=== PATIENT | male | born 2000 | race Caucasian/White ===

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

== ENCOUNTER 2020-01-01 08:38 | Emergency (ER) | payer BC, OTHER ==
[~2020-01-01] VITALS: Ht 185.4 cm; Wt 131.6 kg
[~2020-01-01 08:38] MED LIST changes: -FLUO20CA19 PO; +FLUO20CA22 PO; +MELA3TAB30 PO; -MELA3TAB41 PO
[2020-01-01] MEDS ORDERED: ADDE20CA3 (08:49)
[2020-01-01] MEDS ORDERED: REXU1TAB5 (08:49)
[2020-01-01] MEDS ORDERED: REXU1TAB6 (08:49)
[2020-01-01] MEDS ORDERED: TRAZ-252 (08:49)
[2020-01-01] MEDS ORDERED: ALBUTEROL 90 MCG/ACT 8GM HFA INHALER INH ONE (09:30)
--- NOTE | 2020-01-01 09:39 | REPVR ---
PROCEDURE INFORMATION: Exam: XR Chest, 2 Views Exam date and time: 01/01/2020 9:28 AM Age: 19 years old Clinical indication: Shortness of breath; Additional info: SOB, chest pain TECHNIQUE: Imaging protocol: XR of the chest Views: 2 views. COMPARISON: No relevant prior studies available. FINDINGS: Lungs: Unremarkable. No consolidation. Pleural space: Unremarkable. No pleural effusion. No pneumothorax. Heart/Mediastinum: Unremarkable. No cardiomegaly. Bones/joints: Unremarkable. IMPRESSION: No acute abnormalities are identified. Electronically signed by: Star Narayan On 01/01/2020 09:38:57 AM
[2020-01-01] MEDS ORDERED: VENTAER INH (10:29)
[2020-01-01 10:42] VITALS: BP 124/77
--- NOTE | 2020-01-14 15:06 | ECGEPIP ---
SINUS RHYTHM NORMAL ECG SEE SCANNED DOWNTIME REPORT MTDD
== END 2020-01-01 10:47 | disposition home or self-care (01) ==
LOC: M ED 08:38
DX: J98.01 Acute bronchospasm (principal); F41.9 Anxiety disorder, unspecified

== ENCOUNTER → 2020-10-13 | Outpatient (REF) | payer OTHER ==
[~2020-10-13] MED LIST changes: +ADDE20CA3; +BUPR150T12; -BUPR150T3; +REXU1TAB5; +REXU1TAB6; +TRAZ-252; +VENTAER INH
[2020-10-13 10:34] LABS: BASO % 0.7 % (0.0-1.0); EOS # 0.3 10^3/uL (0.0-0.5); EOS % 5.4 % (0.0-3.0); HEMATOCRIT 50.1 % (42.0-52.0); LYMPH # 2.4 10^3/uL (1.5-5.0); MEAN CORPUSCULAR HEMOGLOBIN 25.8 pg (27.0-33.0); MEAN CORPUSCULAR HGB CONC 31.9 g/dl (32.0-36.5); MEAN CORPUSCULAR VOLUME 80.7 fl (80.0-96.0); MONO # 0.6 10^3/uL (0.0-0.8); NEUTROPHILS # 2.3 10^3/uL (1.5-8.5); NEUTROPHILS % 41.2 % (36.0-66.0); PLATELET COUNT, AUTOMATED 252 10^3/uL (150-450); RED BLOOD COUNT 6.21 10^6/uL (4.30-6.10); WHITE BLOOD COUNT 5.6 10^3/uL (4.0-10.0)
[2020-10-13 11:16] LABS: ALBUMIN 4.3 GM/DL (3.2-5.2); ALT/SGPT 187 U/L (12-78); BILIRUBIN,TOTAL 0.5 MG/DL (0.2-1.0); BLOOD UREA NITROGEN 9 MG/DL (7-18); CALCIUM LEVEL 9.2 MG/DL (8.5-10.1); CARBON DIOXIDE LEVEL 27 MEQ/L (21-32); CHLORIDE LEVEL 106 MEQ/L (98-107); CHOLESTEROL LEVEL 152 MG/DL (<200); CHOLESTEROL RISK RATIO 5.241 (<5); CREATININE FOR GFR 0.88 MG/DL (0.70-1.30); FREE T4 1.01 NG/DL (0.78-1.33); GLUCOSE, FASTING 83 MG/DL (70-100); HDL CHOLESTEROL 29 MG/DL (>40); LDL CHOLESTEROL 86 MG/DL (<100); NON-HDL-C 123 MG/DL; POTASSIUM SERUM 4.5 MEQ/L (3.5-5.1); SODIUM LEVEL 137 MEQ/L (136-145); TOTAL PROTEIN 7.6 GM/DL (6.4-8.2); TRIGLYCERIDES LEVEL 183 MG/DL (<150)
[2020-10-13 11:33] LABS: HEMOGLOBIN A1c 5.5 %
== END ==
LOC: M PLALAB 08:57
PROVIDERS: ATTEND Physician Assistant
DX: E66.01 Morbid (severe) obesity due to excess calories (principal); G47.33 Obstructive sleep apnea (adult) (pediatric); F20.89 Other schizophrenia; Z13.220 Encounter for screening for lipoid disorders; R00.0 Tachycardia, unspecified; I10 Essential (primary) hypertension; L60.0 Ingrowing nail

== ENCOUNTER → 2020-11-22 | Outpatient (CLI) | payer BC, OTHER ==
--- NOTE | 2020-11-22 09:33 | REP ---
INDICATION: ELEVATED LFT'S-HAS ECHO AFTER. COMPARISON: None. TECHNIQUE: Standard right upper quadrant sonography techniques utilized. FINDINGS: Exam is limited by body habitus considerations. The liver is diffusely and significantly hyperechoic consistent with fatty infiltration is difficult to penetrate the liver. That said, no of visible of dominant mass, a cyst, intrahepatic biliary dilatation nor adjacent ascites identified. The gallbladder shows no stone, sludge, pericholecystic fluid, wall thickening or mass. Limited visualization of the common bile duct shows at segment seen to be 5 mm and without a filling defect. No visible intrahepatic or extrahepatic biliary dilatation. Pancreas is completely obscured by gas shadowing. In the right kidney is 13 x 5.7 by 5.5 cm without hydronephrosis or mass. IMPRESSION: Diffuse fatty infiltration of the liver without mass, biliary dilatation, cyst or adjacent ascites. Gallbladder, common bile duct and right kidney unremarkable. Pancreas completely obscured by gas shadowing. Exam limited by body habitus considerations and diffuse intense fatty infiltration of the liver. <Electronically signed by Leland Sosa > 11/22/20 [id number]
== END ==
LOC: M RAD 08:11
PROVIDERS: ATTEND Physician Assistant
DX: R74.8 Abnormal levels of other serum enzymes (principal); K76.0 Fatty (change of) liver, not elsewhere classified

== ENCOUNTER 2021-01-06 14:09 | Emergency (ER) | payer BC, OTHER ==
[~2021-01-06] VITALS: Ht 185.4 cm; Wt 155.6 kg
[2021-01-06 14:10] VITALS: BP 130/86
[2021-01-06] MEDS ORDERED: BENZ-18 (14:28)
[2021-01-06] MEDS ORDERED: HYDR-3490 (14:28)
== END 2021-01-06 18:08 | disposition left against medical advice (07) ==
LOC: M ED 14:09
DX: Z53.21 Procedure and treatment not carried out due to patient leaving prior to being seen by health care provider (principal)

== ENCOUNTER → 2021-01-26 | Outpatient (CLI) | payer BC, OTHER ==
[~2021-01-26] MED LIST changes: +BENZ-18; +HYDR-3490
== END ==
LOC: M LABSMTC 09:41
PROVIDERS: ATTEND Pediatrics
DX: Z20.822 Contact with and (suspected) exposure to COVID-19 (principal)
CPT/HCPCS: C9803; U0003

== ENCOUNTER → 2021-07-25 | Outpatient (CLI) | payer BC, OTHER ==
[~2021-07-25] MED LIST changes: -LATU80TA PO; +LATU80TA2 PO
[2021-07-25 16:01] LABS: CORTISOL PM 10.8 UG/DL (3.1-16.7); THYROID STIMULATING HORMONE 2.26 uIU/ML (0.358-3.740)
== END ==
LOC: M PLALAB 13:32
PROVIDERS: ATTEND Internal Medicine Endocrinology, Diabetes & Metabolism
DX: E16.1 Other hypoglycemia (principal)

== ENCOUNTER 2021-08-15 12:25 | Emergency (ER) | payer BC, OTHER ==
[~2021-08-15] VITALS: Ht 182.9 cm; Wt 132.6 kg
[2021-08-15] MEDS ORDERED: REXU1TAB5 PO (12:33)
[2021-08-15] MEDS ORDERED: PROP60CA PO (12:33)
[2021-08-15] MEDS ORDERED: PROZ10CA7 PO (12:33)
[2021-08-15 16:07] LABS: BASO % 0.4 % (0.0-1.0); EOS # 0.2 10^3/uL (0.0-0.5); EOS % 2.5 % (0.0-3.0); HEMATOCRIT 45.6 % (42.0-52.0); HEMOGLOBIN 14.8 g/dl (13.5-17.5); LYMPH # 2.4 10^3/uL (1.5-5.0); LYMPH % 25.4 % (24.0-44.0); MEAN CORPUSCULAR HEMOGLOBIN 25.8 pg (27.0-33.0); MEAN CORPUSCULAR HGB CONC 32.5 g/dl (32.0-36.5); MEAN CORPUSCULAR VOLUME 79.6 fl (80.0-96.0); MONO # 0.7 10^3/uL (0.0-0.8); MONO % 7.1 % (2.0-8.0); NEUTROPHILS # 6.1 10^3/uL (1.5-8.5); NEUTROPHILS % 64.1 % (36.0-66.0); PLATELET COUNT, AUTOMATED 317 10^3/uL (150-450); RED BLOOD COUNT 5.73 10^6/uL (4.30-6.10); WHITE BLOOD COUNT 9.5 10^3/uL (4.0-10.0)
[2021-08-15 16:40] VITALS: BP 142/79
== END 2021-08-15 16:41 | disposition home or self-care (01) ==
LOC: M ED 12:25
DX: R07.89 Other chest pain (principal); F90.9 Attention-deficit hyperactivity disorder, unspecified type; K76.0 Fatty (change of) liver, not elsewhere classified; I51.7 Cardiomegaly; Z82.49 Family history of ischemic heart disease and other diseases of the circulatory system; Z91.040 Latex allergy status; Z88.8 Allergy status to other drugs, medicaments and biological substances

== ENCOUNTER → 2021-08-25 | Outpatient (CLI) | payer BC, OTHER ==
[~2021-08-25] MED LIST changes: +PROP60CA PO; +PROZ10CA7 PO; +REXU1TAB5 PO
== END ==
LOC: M SLEEP 20:00
PROVIDERS: ATTEND Physician Assistant
DX: G47.33 Obstructive sleep apnea (adult) (pediatric) (principal)

== ENCOUNTER 2021-12-03 01:19 | Emergency (ER) | payer BC, OTHER ==
[~2021-12-03] VITALS: Ht 185.4 cm; Wt 124.5 kg
[2021-12-03 01:29] VITALS: BP 130/86
== END 2021-12-03 05:29 | disposition left against medical advice (07) ==
LOC: M ED 01:19 → EDBD 01:19 → M ED 05:29
DX: Z53.21 Procedure and treatment not carried out due to patient leaving prior to being seen by health care provider (principal)

== ENCOUNTER → 2022-01-06 | Outpatient (REF) | payer OTHER | LOC: M SFHCADAM 08:17 | PROVIDERS: ATTEND Physician Assistant | DX: L65.9 Nonscarring hair loss, unspecified (principal); Z53.9 Procedure and treatment not carried out, unspecified reason ==

== ENCOUNTER → 2022-01-09 | Outpatient (CLI) | payer BC, OTHER ==
[2022-01-09 10:33] LABS: BASO % 0.5 % (0.0-1.0); EOS # 0.2 10^3/uL (0.0-0.5); EOS % 2.7 % (0.0-3.0); HEMATOCRIT 41.3 % (42.0-52.0); HEMOGLOBIN 13.1 g/dl (13.5-17.5); LYMPH # 1.8 10^3/uL (1.5-5.0); LYMPH % 32.7 % (24.0-44.0); MEAN CORPUSCULAR HEMOGLOBIN 25.6 pg (27.0-33.0); MEAN CORPUSCULAR HGB CONC 31.7 g/dl (32.0-36.5); MEAN CORPUSCULAR VOLUME 80.8 fl (80.0-96.0); MONO # 0.5 10^3/uL (0.0-0.8); MONO % 8.6 % (2.0-8.0); NEUTROPHILS # 3.1 10^3/uL (1.5-8.5); NEUTROPHILS % 55.1 % (36.0-66.0); PLATELET COUNT, AUTOMATED 232 10^3/uL (150-450); RED BLOOD COUNT 5.11 10^6/uL (4.30-6.10); WHITE BLOOD COUNT 5.6 10^3/uL (4.0-10.0)
[2022-01-09 11:49] LABS: ALBUMIN 4.2 GM/DL (3.2-5.2); ALT/SGPT 32 U/L (12-78); BILIRUBIN,TOTAL 0.6 MG/DL (0.2-1.0); BLOOD UREA NITROGEN 13 MG/DL (7-18); CALCIUM LEVEL 9.2 MG/DL (8.5-10.1); CARBON DIOXIDE LEVEL 27 MEQ/L (21-32); CHLORIDE LEVEL 107 MEQ/L (98-107); CREATININE FOR GFR 0.87 MG/DL (0.70-1.30); FERRITIN 74 NG/ML (26-388); FREE T4 0.87 NG/DL (0.76-1.46); GLOMERULAR FILTRATION RATE > 60.0 (>60); GLUCOSE, FASTING 81 MG/DL (70-100); IRON (FE) 74 UG/DL (65-175); POTASSIUM SERUM 4.3 MEQ/L (3.5-5.1); SODIUM LEVEL 138 MEQ/L (136-145); TOTAL IRON BINDING CAPACITY 412 UG/DL (250-450)
[2022-01-09 12:30] LABS: TOTAL 25(OH) VITAMIN D 29.7 NG/ML (30.0-100.0)
[2022-01-09 12:31] LABS: VITAMIN B12 LEVEL 405 PG/ML (247-911)
== END ==
LOC: M PLALAB 08:37
PROVIDERS: ATTEND Physician Assistant
DX: L65.9 Nonscarring hair loss, unspecified (principal)

== ENCOUNTER → 2022-07-17 | Outpatient (CLI) | payer BC, OTHER ==
[2022-07-17 19:43] LABS: HEMOGLOBIN A1c 5.1 % (4.0-6.0)
== END ==
LOC: M LAB 17:32
PROVIDERS: ATTEND Surgery
DX: Z86.39 Personal history of other endocrine, nutritional and metabolic disease (principal)

== ENCOUNTER → 2022-09-01 | Outpatient (REF) | payer OTHER ==
[2022-09-01 12:37] LABS: HEMOGLOBIN 14.6 g/dl (13.5-17.5); MEAN CORPUSCULAR HEMOGLOBIN 25.4 pg (27.0-33.0); MEAN CORPUSCULAR HGB CONC 31.7 g/dl (32.0-36.5); MEAN CORPUSCULAR VOLUME 80.1 fl (80.0-96.0); PLATELET COUNT, AUTOMATED 268 10^3/uL (150-450); RED BLOOD COUNT 5.74 10^6/uL (4.30-6.10); WHITE BLOOD COUNT 7.2 10^3/uL (4.0-10.0)
[2022-09-01 12:50] LABS: HEMOGLOBIN A1c 5.1 % (4.0-6.0)
[2022-09-01 13:06] LABS: ALBUMIN 3.9 G/DL (3.2-5.2); ALKALINE PHOSPHATASE 76 U/L (46-116); ALT/SGPT 31 U/L (7.0-40); AST/SGOT 20 U/L (<34); BILIRUBIN,TOTAL 0.5 MG/DL (0.3-1.2); BLOOD UREA NITROGEN 14 MG/DL (9-23); CARBON DIOXIDE LEVEL 29 MMOL/L (20-31); CHLORIDE LEVEL 104 MMOL/L (98-107); CREATININE FOR GFR 0.89 MG/DL (0.70-1.30); GLOMERULAR FILTRATION RATE > 60.0 (>60); GLUCOSE, FASTING 76 MG/DL (60-100); POTASSIUM SERUM 4.1 MMOL/L (3.5-5.1); SODIUM LEVEL 140 MMOL/L (136-145); THYROID STIMULATING HORMONE 1.543 uIU/ML (0.55-4.78); TOTAL PROTEIN 6.8 G/DL (5.7-8.2)
[2022-09-01 13:07] LABS: FREE T4 0.95 NG/DL (0.89-1.76)
== END ==
LOC: M SFHCADAM 11:36
PROVIDERS: ATTEND Physician Assistant
DX: Z01.812 Encounter for preprocedural laboratory examination (principal)

== ENCOUNTER → 2022-10-12 | Outpatient (CLI) | payer BC, OTHER | LOC: M RAD 12:01 | PROVIDERS: ATTEND Physician Assistant Surgical | DX: M79.662 Pain in left lower leg (principal); R22.42 Localized swelling, mass and lump, left lower limb; Z98.84 Bariatric surgery status ==

== ENCOUNTER 2022-10-13 17:30 | Emergency (ER) | payer BC, OTHER ==
[~2022-10-13] VITALS: Ht 185.4 cm; Wt 125.5 kg
[2022-10-13] MEDS ORDERED: NS 1,000 ML IV ONE ×2 (17:45→20:35)
[2022-10-13 18:20] LABS: BASO % 0.4 % (0.0-1.0); EOS # 0.4 10^3/uL (0.0-0.5); EOS % 3.8 % (0.0-3.0); HEMOGLOBIN 12.9 g/dl (13.5-17.5); MEAN CORPUSCULAR HEMOGLOBIN 25.5 pg (27.0-33.0); MEAN CORPUSCULAR HGB CONC 32.3 g/dl (32.0-36.5); MEAN CORPUSCULAR VOLUME 79.1 fl (80.0-96.0); MONO # 0.7 10^3/uL (0.0-0.8); MONO % 8.1 % (2.0-8.0); NEUTROPHILS # 5.8 10^3/uL (1.5-8.5); NEUTROPHILS % 64.2 % (36.0-66.0); PLATELET COUNT, AUTOMATED 304 10^3/uL (150-450); RED BLOOD COUNT 5.06 10^6/uL (4.30-6.10); WHITE BLOOD COUNT 9.1 10^3/uL (4.0-10.0)
[2022-10-13 18:44] LABS: ALBUMIN 4.3 G/DL (3.2-5.2); ALKALINE PHOSPHATASE 64 U/L (46-116); ALT/SGPT 21 U/L (7.0-40); AST/SGOT 14 U/L (<34); BILIRUBIN,DIRECT 0.2 MG/DL (<0.4); BILIRUBIN,TOTAL 0.7 MG/DL (0.3-1.2); BLOOD UREA NITROGEN 14 MG/DL (9-23); CALCIUM LEVEL 9.4 MG/DL (8.5-10.1); CARBON DIOXIDE LEVEL 21 MMOL/L (20-31); CHLORIDE LEVEL 99 MMOL/L (98-107); CK-MB VALUE MASS < 1.0 NG/ML (<3.6); CPK CREATINE PHOSPHOKINASE 108 U/L (46-171); CREATININE FOR GFR 0.99 MG/DL (0.70-1.30); GLOMERULAR FILTRATION RATE > 60.0 (>60); GLUCOSE, FASTING 80 MG/DL (60-100); MB/CK RELATIVE INDEX 0.92 (< OR =4); POTASSIUM SERUM 3.4 MMOL/L (3.5-5.1); SODIUM LEVEL 136 MMOL/L (136-145); TOTAL PROTEIN 7.1 G/DL (5.7-8.2)
[2022-10-13 18:45] LABS: THYROID STIMULATING HORMONE 1.896 uIU/ML (0.55-4.78); THYROXINE (T4) 10.6 UG/DL (4.5-10.9)
[2022-10-13 18:52] LABS: RSV AMPLIFICATION NEGATIVE (NEGATIVE)
[2022-10-13] MEDS ORDERED: ISOVUE-370 76% 100ML VIAL As Ordered ONE (18:52)
[2022-10-13 20:05] LABS: CK-MB VALUE MASS < 1.0 NG/ML (<3.6)
[2022-10-13 20:07] LABS: CPK CREATINE PHOSPHOKINASE 89 U/L (46-171); MB/CK RELATIVE INDEX 1.12 (< OR =4)
[2022-10-13] MEDS ORDERED: PIPERACILLIN/TAZOBACTAM SOD 4.5 GM in D5W MINI-BAG PLUS 50 ML IV ONE (20:25)
[2022-10-13 21:06] VITALS: TEMP 98
[2022-10-13 21:30] VITALS: O2SAT 98
[2022-10-13 21:38] VITALS: BP 128/75
== END 2022-10-13 21:46 | disposition short-term general hospital (02) ==
LOC: M ED 17:30
DX: K66.8 Other specified disorders of peritoneum (principal); E11.9 Type 2 diabetes mellitus without complications; I10 Essential (primary) hypertension; Z98.84 Bariatric surgery status; F41.9 Anxiety disorder, unspecified; Z79.899 Other long term (current) drug therapy; Z88.8 Allergy status to other drugs, medicaments and biological substances
CPT/HCPCS: 71045; 71275; 74177; 80047; 80048; 80076; 82550; 82553; 83605; 83880; 84436; 84443; 84484; 85025; 87040; 87631; 93005; 93041; 94760; 99285; Q9967

== ENCOUNTER 2022-10-14 20:26 | Emergency (ER) | payer BC, OTHER ==
[2022-10-14 20:46] VITALS: TEMP 97.4; O2SAT 97
[2022-10-14 21:00] VITALS: BP 186/108
[2022-10-14 21:28] LABS: BASO % 0.3 % (0.0-1.0); EOS # 0.3 10^3/uL (0.0-0.5); HEMATOCRIT 40.4 % (42.0-52.0); HEMOGLOBIN 12.8 g/dl (13.5-17.5); LYMPH # 2.1 10^3/uL (1.5-5.0); LYMPH % 24.8 % (24.0-44.0); MEAN CORPUSCULAR HEMOGLOBIN 25.2 pg (27.0-33.0); MEAN CORPUSCULAR HGB CONC 31.7 g/dl (32.0-36.5); MEAN CORPUSCULAR VOLUME 79.7 fl (80.0-96.0); MONO # 0.6 10^3/uL (0.0-0.8); MONO % 7.1 % (2.0-8.0); NEUTROPHILS # 5.5 10^3/uL (1.5-8.5); NEUTROPHILS % 63.9 % (36.0-66.0); PLATELET COUNT, AUTOMATED 300 10^3/uL (150-450); RED BLOOD COUNT 5.07 10^6/uL (4.30-6.10); WHITE BLOOD COUNT 8.6 10^3/uL (4.0-10.0)
[2022-10-14 21:39] LABS: INR 1.04; PROTHROMBIN TIME 13.8 SECONDS (12.5-14.5)
[2022-10-14 21:55] LABS: LIPASE 53 U/L (12-53)
[2022-10-14 21:56] LABS: CK-MB VALUE MASS < 1.0 NG/ML (<3.6)
[2022-10-14 21:58] LABS: CPK CREATINE PHOSPHOKINASE 85 U/L (46-171); MB/CK RELATIVE INDEX 1.17 (< OR =4)
[2022-10-14 22:01] LABS: ALBUMIN 4.3 G/DL (3.2-5.2); ALKALINE PHOSPHATASE 60 U/L (46-116); ALT/SGPT 19 U/L (7.0-40); AST/SGOT 15 U/L (<34); BILIRUBIN,DIRECT 0.2 MG/DL (<0.4); BILIRUBIN,TOTAL 0.6 MG/DL (0.3-1.2); BLOOD UREA NITROGEN 5 MG/DL (9-23); CALCIUM LEVEL 8.6 MG/DL (8.5-10.1); CARBON DIOXIDE LEVEL 22 MMOL/L (20-31); CHLORIDE LEVEL 103 MMOL/L (98-107); CREATININE FOR GFR 0.88 MG/DL (0.70-1.30); GLOMERULAR FILTRATION RATE > 60.0 (>60); GLUCOSE, FASTING 87 MG/DL (60-100); POTASSIUM SERUM 4.1 MMOL/L (3.5-5.1); SODIUM LEVEL 138 MMOL/L (136-145); TOTAL PROTEIN 6.9 G/DL (5.7-8.2)
== END 2022-10-14 22:22 | disposition left against medical advice (07) ==
LOC: M ED 20:26 → EDBD 20:26 → M ED 22:22
DX: Z53.21 Procedure and treatment not carried out due to patient leaving prior to being seen by health care provider (principal)

== ENCOUNTER → 2022-10-27 | Outpatient (CLI) | payer BC, OTHER | LOC: M RAD 15:16 | PROVIDERS: ATTEND Physician Assistant Surgical | DX: M79.661 Pain in right lower leg (principal); Z98.84 Bariatric surgery status ==

== ENCOUNTER → 2022-11-01 | Outpatient (CLI) | payer BC, OTHER ==
[2022-11-01 15:43] LABS: BASO % 0.4 % (0.0-1.0); EOS # 0.3 10^3/uL (0.0-0.5); EOS % 5.9 % (0.0-3.0); HEMATOCRIT 41.5 % (42.0-52.0); HEMOGLOBIN 13.1 g/dl (13.5-17.5); LYMPH % 38.7 % (24.0-44.0); MEAN CORPUSCULAR HEMOGLOBIN 25.5 pg (27.0-33.0); MEAN CORPUSCULAR HGB CONC 31.6 g/dl (32.0-36.5); MEAN CORPUSCULAR VOLUME 80.9 fl (80.0-96.0); MONO # 0.5 10^3/uL (0.0-0.8); MONO % 9.6 % (2.0-8.0); NEUTROPHILS # 2.3 10^3/uL (1.5-8.5); NEUTROPHILS % 45.2 % (36.0-66.0); PLATELET COUNT, AUTOMATED 220 10^3/uL (150-450); RED BLOOD COUNT 5.13 10^6/uL (4.30-6.10); WHITE BLOOD COUNT 5.1 10^3/uL (4.0-10.0)
[2022-11-01 15:51] LABS: ALBUMIN 4.5 G/DL (3.2-5.2); ALKALINE PHOSPHATASE 65 U/L (46-116); ALT/SGPT 22 U/L (7.0-40); AST/SGOT 10 U/L (<34); BILIRUBIN,TOTAL 0.6 MG/DL (0.3-1.2); BLOOD UREA NITROGEN 6 MG/DL (9-23); CALCIUM LEVEL 9.9 MG/DL (8.5-10.1); CARBON DIOXIDE LEVEL 26 MMOL/L (20-31); CHLORIDE LEVEL 105 MMOL/L (98-107); CREATININE FOR GFR 0.87 MG/DL (0.70-1.30); GLOMERULAR FILTRATION RATE > 60.0 (>60); GLUCOSE, FASTING 75 MG/DL (60-100); IRON (FE) 72 UG/DL (65-175); PERCENT SATURATION 23.9 % (19.7-50.0); PHOSPHORUS LEVEL 3.4 MG/DL (2.5-4.9); POTASSIUM SERUM 4.4 MMOL/L (3.5-5.1); SODIUM LEVEL 139 MMOL/L (136-145); TOTAL IRON BINDING CAPACITY 301 UG/DL (250-425); TOTAL PROTEIN 6.7 G/DL (5.7-8.2)
[2022-11-01 15:52] LABS: TOTAL 25(OH) VITAMIN D 32.6 NG/ML (20.0-100.0)
[2022-11-01 15:53] LABS: FERRITIN 137.5 NG/ML (10.5-307.3); VITAMIN B12 LEVEL 915 PG/ML (211-911)
[2022-11-01 15:58] LABS: HEMATOCRIT 41.2 % (42.0-52.0)
[2022-11-01 17:03] LABS: HEMOGLOBIN A1c 4.7 % (4.0-6.0)
== END ==
LOC: M PLALAB 13:22
PROVIDERS: ATTEND Surgery
DX: K91.2 Postsurgical malabsorption, not elsewhere classified (principal); Z98.84 Bariatric surgery status; E55.9 Vitamin D deficiency, unspecified; Z86.39 Personal history of other endocrine, nutritional and metabolic disease

== ENCOUNTER 2023-04-18 19:15 | Emergency (ER) | payer BC, OTHER ==
[~2023-04-18] VITALS: Ht 185.4 cm; Wt 121.5 kg
[2023-04-18 19:15] VITALS: BP 173/87; TEMP 97.9; O2SAT 100
[~2023-04-18 19:15] MED LIST changes: +OMEP40CA5; +SERT50TA29
[2023-04-18 19:50] LABS: BASO % 0.4 % (0.0-1.0); EOS # 0.1 10^3/uL (0.0-0.5); EOS % 2.5 % (0.0-3.0); HEMATOCRIT 43.1 % (42.0-52.0); HEMOGLOBIN 13.9 g/dl (13.5-17.5); LYMPH # 1.7 10^3/uL (1.5-5.0); LYMPH % 33.4 % (24.0-44.0); MEAN CORPUSCULAR HEMOGLOBIN 26.4 pg (27.0-33.0); MEAN CORPUSCULAR HGB CONC 32.3 g/dl (32.0-36.5); MEAN CORPUSCULAR VOLUME 81.8 fl (80.0-96.0); MONO # 0.7 10^3/uL (0.0-0.8); MONO % 13.9 % (2.0-8.0); NEUTROPHILS # 2.5 10^3/uL (1.5-8.5); NEUTROPHILS % 49.6 % (36.0-66.0); PLATELET COUNT, AUTOMATED 227 10^3/uL (150-450); RED BLOOD COUNT 5.27 10^6/uL (4.30-6.10); WHITE BLOOD COUNT 5.1 10^3/uL (4.0-10.0)
[2023-04-18 20:20] LABS: ALBUMIN 4.2 G/DL (3.2-5.2); ALKALINE PHOSPHATASE 75 U/L (46-116); ALT/SGPT 31 U/L (7.0-40); AST/SGOT 23 U/L (<34); BILIRUBIN,DIRECT < 0.1 MG/DL (<0.4); BILIRUBIN,TOTAL 0.3 MG/DL (0.3-1.2); BLOOD UREA NITROGEN 15 MG/DL (9-23); CALCIUM LEVEL 9.3 MG/DL (8.5-10.1); CARBON DIOXIDE LEVEL 25 MMOL/L (20-31); CHLORIDE LEVEL 110 MMOL/L (98-107); CREATININE FOR GFR 0.89 MG/DL (0.70-1.30); GLOMERULAR FILTRATION RATE > 60.0 (>60); GLUCOSE, FASTING 96 MG/DL (60-100); POTASSIUM SERUM 4.4 MMOL/L (3.5-5.1); SODIUM LEVEL 142 MMOL/L (136-145); TOTAL PROTEIN 7.1 G/DL (5.7-8.2)
[2023-04-18 20:20] LABS: RSV AMPLIFICATION NEGATIVE (NEGATIVE)
== END 2023-04-18 21:20 | disposition left against medical advice (07) ==
LOC: M ED 19:15
DX: Z53.21 Procedure and treatment not carried out due to patient leaving prior to being seen by health care provider (principal)

== ENCOUNTER → 2023-05-18 | Outpatient (REF) | payer BC, OTHER ==
[2023-05-19 15:11] LABS: TESTOSTERONE FREE (DIRECT) 12.2 pg/mL (9.3-26.5)
== END ==
LOC: M SFHCADAM 07:50
PROVIDERS: ATTEND Physician Assistant
DX: R68.82 Decreased libido (principal); E66.01 Morbid (severe) obesity due to excess calories

== ENCOUNTER → 2023-05-18 | Outpatient (REF) | payer BC, OTHER ==
[2023-05-18 21:10] LABS: HEMATOCRIT 42.4 % (42.0-52.0); HEMOGLOBIN 13.6 g/dl (13.5-17.5); MEAN CORPUSCULAR HEMOGLOBIN 26.8 pg (27.0-33.0); MEAN CORPUSCULAR HGB CONC 32.1 g/dl (32.0-36.5); MEAN CORPUSCULAR VOLUME 83.5 fl (80.0-96.0); PLATELET COUNT, AUTOMATED 237 10^3/uL (150-450); RED BLOOD COUNT 5.08 10^6/uL (4.30-6.10); WHITE BLOOD COUNT 6.3 10^3/uL (4.0-10.0)
[2023-05-18 21:16] LABS: IRON (FE) 42 UG/DL (65-175)
[2023-05-18 21:17] LABS: ALBUMIN 4.6 G/DL (3.2-5.2); ALKALINE PHOSPHATASE 77 U/L (46-116); ALT/SGPT 30 U/L (7.0-40); AST/SGOT 23 U/L (<34); BILIRUBIN,TOTAL 0.5 MG/DL (0.3-1.2); BLOOD UREA NITROGEN 17 MG/DL (9-23); CALCIUM LEVEL 8.9 MG/DL (8.5-10.1); CARBON DIOXIDE LEVEL 26 MMOL/L (20-31); CHLORIDE LEVEL 105 MMOL/L (98-107); CREATININE FOR GFR 0.94 MG/DL (0.70-1.30); GLOMERULAR FILTRATION RATE > 60.0 (>60); GLUCOSE, FASTING 69 MG/DL (60-100); MAGNESIUM LEVEL 2.2 MG/DL (1.8-2.4); PHOSPHORUS LEVEL 3.8 MG/DL (2.5-4.9); SODIUM LEVEL 139 MMOL/L (136-145); TOTAL IRON BINDING CAPACITY 351 UG/DL (250-425); TOTAL PROTEIN 7.1 G/DL (5.7-8.2)
[2023-05-18 21:18] LABS: FERRITIN 74.7 NG/ML (10.5-307.3); TOTAL 25(OH) VITAMIN D 43.5 NG/ML (20.0-100.0)
[2023-05-18 21:19] LABS: VITAMIN B12 LEVEL 607 PG/ML (211-911)
[2023-05-19 22:49] LABS: HEMATOCRIT 42.4 % (42.0-52.0)
== END ==
LOC: M LAB REF 20:51
PROVIDERS: ATTEND Physician Assistant Surgical
DX: Z98.84 Bariatric surgery status (principal)

== ENCOUNTER → 2023-05-29 | Outpatient (REF) | payer BC, OTHER | LOC: M LAB REF 16:12 | PROVIDERS: ATTEND Physician Assistant Medical | DX: R50.9 Fever, unspecified (principal) ==

== ENCOUNTER 2024-08-02 02:53 | Emergency (ER) | payer BC, OTHER ==
[~2024-08-02] VITALS: Ht 185.4 cm; Wt 83.4 kg
[~2024-08-02 02:53] MED LIST changes: +BUPR-597; -BUPR300T92; +FLUO-365 PO; -FLUO20CA22 PO; -ZIPR60CA11 PO; +ZIPR60CA21 PO
[2024-08-02 04:15] VITALS: BP 119/73
[2024-08-02 05:45] LABS: BASO % 0.2 % (0.0-1.0); EOS # 0.2 10^3/uL (0.0-0.5); EOS % 1.7 % (0.0-3.0); HEMATOCRIT 50.1 % (42.0-52.0); HEMOGLOBIN 16.5 g/dl (13.5-17.5); LYMPH # 2.6 10^3/uL (1.5-5.0); LYMPH % 28.5 % (24.0-44.0); MEAN CORPUSCULAR HEMOGLOBIN 25.5 pg (27.0-33.0); MEAN CORPUSCULAR HGB CONC 32.9 g/dl (32.0-36.5); MEAN CORPUSCULAR VOLUME 77.4 fl (80.0-96.0); MONO # 0.9 10^3/uL (0.0-0.8); MONO % 9.7 % (2.0-8.0); NEUTROPHILS # 5.5 10^3/uL (1.5-8.5); NEUTROPHILS % 59.5 % (36.0-66.0); PLATELET COUNT, AUTOMATED 313 10^3/uL (150-450); RED BLOOD COUNT 6.47 10^6/uL (4.30-6.10); WHITE BLOOD COUNT 9.3 10^3/uL (4.0-10.0)
[2024-08-02 06:23] VITALS: TEMP 97.8; O2SAT 77
== END 2024-08-02 06:44 | disposition home or self-care (01) ==
LOC: M ED 02:53
DX: M79.652 Pain in left thigh (principal); K21.9 Gastro-esophageal reflux disease without esophagitis; J45.909 Unspecified asthma, uncomplicated; K76.0 Fatty (change of) liver, not elsewhere classified; F17.210 Nicotine dependence, cigarettes, uncomplicated; F90.9 Attention-deficit hyperactivity disorder, unspecified type; Z88.8 Allergy status to other drugs, medicaments and biological substances

== ENCOUNTER 2024-10-30 14:59 | Emergency (ER) | payer BC ==
[~2024-10-30] VITALS: Ht 185.4 cm; Wt 85.8 kg
[~2024-10-30 14:59] MED LIST changes: +ADDE25CA PO; +ALPR0.25 PO; +AMOX875T2 PO; -BUPR-597; +BUPR-766; +VYVA70CA3 PO
[2024-10-30 15:16] VITALS: BP 145/78; TEMP 97.1; O2SAT 100
== END 2024-10-30 15:40 | disposition left against medical advice (07) ==
LOC: M ED 14:59 → EDBD 14:59 → M ED 15:40
DX: Z53.21 Procedure and treatment not carried out due to patient leaving prior to being seen by health care provider (principal)

== ENCOUNTER → 2024-11-06 | Outpatient (CLI) | payer BC ==
[2024-11-06 15:27] LABS: ALT/SGPT 31 U/L (7.0-40); AST/SGOT 29 U/L (<34); CALCIUM LEVEL 9.4 MG/DL (8.5-10.1); CARBON DIOXIDE LEVEL 28 MMOL/L (20-31); CHLORIDE LEVEL 103 MMOL/L (98-107); CREATININE FOR GFR 1.02 MG/DL (0.70-1.30); GLOMERULAR FILTRATION RATE > 90.0 (>60); IRON (FE) 187 UG/DL (65-175); POTASSIUM SERUM 4.4 MMOL/L (3.5-5.1); SODIUM LEVEL 139 MMOL/L (136-145)
[2024-11-06 15:28] LABS: THYROXINE (T4) 6.4 UG/DL (4.5-10.9)
[2024-11-06 15:29] LABS: VITAMIN B12 LEVEL 423 PG/ML (211-911)
[2024-11-06 15:31] LABS: BASO # 0.0 10^3/uL (0.0-0.2); BASO % 0.2 % (0.0-1.0); EOS # 0.1 10^3/uL (0.0-0.5); EOS % 0.9 % (0.0-3.0); LYMPH # 2.2 10^3/uL (1.5-5.0); LYMPH % 27.0 % (24.0-44.0); MONO # 0.8 10^3/uL (0.0-0.8); MONO % 10.4 % (2.0-8.0); NEUTROPHILS # 5.0 10^3/uL (1.5-8.5); NEUTROPHILS % 61.0 % (36.0-66.0); PLATELET COUNT, AUTOMATED 298 10^3/uL (150-450)
[2024-11-06 15:35] LABS: PERCENT SATURATION 47.5 % (19.7-50.0)
[2024-11-06 15:38] LABS: T UPTAKE 44.5 % (22.5-37.0)
== END ==
LOC: M WUC 11:03
PROVIDERS: ATTEND Student in an Organized Health Care Education/Training Program
DX: R42 Dizziness and giddiness (principal)

== ENCOUNTER 2025-01-01 20:01 | Emergency (ER) | payer BC, MEDICAID ==
[~2025-01-01] VITALS: Ht 188 cm; Wt 86.0 kg
[~2025-01-01 20:01] MED LIST changes: +PROZ10CA11 PO; -PROZ10CA7 PO
[2025-01-01 20:03] VITALS: BP 123/61; TEMP 97.5; O2SAT 100
== END 2025-01-01 23:44 | disposition left against medical advice (07) ==
LOC: M ED 20:01
DX: Z53.21 Procedure and treatment not carried out due to patient leaving prior to being seen by health care provider (principal)